=== PATIENT | male | born 1965 | race Caucasian/White ===

== ENCOUNTER 2022-05-28 15:06 | Outpatient (CLI) | payer BC, SELFPAY ==
--- NOTE | 2022-05-28 13:45 | CRLHL7_ITS ---
For Patients: As a result of the Cures Act, medical imaging exams and procedure reports are released immediately into your electronic medical record. You may view this report before your referring provider. If you have questions, please contact your health care provider. INDICATION: Radiculopathy, lumbar region. TECHNIQUE: AP and lateral views of the lower thoracic/lumbar spine. FINDINGS: Mild rotatory lumbar curve convex towards the right. Grade I anterolisthesis L5 relationship to S1. No acute compression fracture. Scattered mild spurring of the upper mid lumbar spine L1-L3. The disc interspaces are fairly well preserved. Metallic BB within the soft tissues posterior to the sacrum. Incidental note is made of multiple small punctate calcifications within the right and left upper quadrant likely related to granulomatous changes within the liver and spleen. IMPRESSION : Mild spurring L1-L3. Grade I anterolisthesis L5 relation to S1. Please see MRI from the same date. Dictated by Akshat Stanton MD @ 05/28/2022 4:37:29 PM (Electronically Signed)
--- NOTE | 2022-05-28 15:30 | CRLHL7_ITS ---
For Patients: As a result of the Century Cures Act, medical imaging exams and procedure reports are released immediately into your electronic medical record. You may view this report before your referring provider. If you have questions, please contact your health care provider. INDICATION: Lumbar radiculopathy. TECHNIQUE : Lumbar spine MRI without contrast. The following sequences were obtained: Sagittal T1, T2 weighted and STIR sequences. Axial T1 and T2 weighted sequences. COMPARISON: Lumbar spine radiographs from 05/28/2022. FINDINGS : Five lumbar type vertebral bodies, with the last fully formed disc space designated as L5-S1. Accentuated lumbar lordosis. Mild dextroconvex lumbar scoliosis. No recent compression fracture or marrow replacing process. A very subtle focus of STIR hyperintensity within the conus at T12-L1, series 4, image 9. no extraspinal soft tissue abnormalities. Discs/Endplates: Advanced disc height loss is disc desiccation and Schmorl`s node deformities and L1-2 and L2-3. Moderate disc height loss is disc desiccation and Schmorl`s nodes at T12-L1. Mild disc height loss and disc desiccation elsewhere. Mild type 1 reactive marrow changes at L2-3 to the left. Posterior elements: Interspinous ligamentous and bony changes and L3-4/L4-5 with associated bone marrow edema. 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 Findings at individual levels as follows: T12-L1: Mild disc bulge. No spinal canal or neural foraminal stenosis. L1-2: Mild disc bulge with a right subarticular protrusion/osteophyte component which contacts the traversing right L2 nerve root. Mild right neural foraminal stenosis. No left neural foraminal stenosis or spinal canal stenosis. L2-3: 3 millimeters retrolisthesis. Mild disc bulge with overlying osteophytic ridging, asymmetric to the left. Mild spinal canal stenosis and mild bilateral neural foraminal stenosis. L3-4: Trace anterolisthesis. Mild disc bulge with overlying osteophytic ridging, asymmetric to the left. Bilateral low-grade facet arthrosis. Mild bilateral neural foraminal stenosis of far-lateral contact of the left L3 nerve root. L4-5: Mild disc bulge with overlying osteophytic ridging. Bilateral low-grade facet arthrosis. Mild bilateral neural foraminal stenosis. No spinal canal stenosis. L5-S1: 7 millimeters anterolisthesis. Superior disc unroofing superimposed mild disc bulge with overlying osteophytic ridging, asymmetric to the left. Left L5 pars defect and right L5 pedicle fracture. Posterior element bone marrow edema. Mild right and moderate left neural foraminal stenosis with contact/mild impingement of the left L5 nerve root. No spinal canal stenosis. Imaged SI joints: Minimal bilateral arthrosis. Imaged sacrum: Within normal limits. IMPRESSION: 1. Subtle focus of STIR hyperintensity within the lower thoracic cord at T12-L1. Nonspecific and could reflect a demyelinating plaque or gliosis from prior ischemic/inflammatory insult. No associated cord atrophy or expansion. 2. Widespread lumbar disc degeneration and facet arthrosis. Accentuated lumbar lordosis and mild dextroconvex lumbar scoliosis. 3. At L5-S1, grade 1 anterolisthesis with left L5 pars defect and right pedicle fracture. Accompanying posterior element bone marrow edema. Moderate left neural foraminal stenosis with contact/mild impingement of the left L5 nerve root. 4. At L3-4, far-lateral contact of the left L3 nerve root by disc osteophyte. 5. At L1-2, a small right subarticular protrusion/osteophyte contacts the traversing right L2 nerve root. 6. 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 Dictated by Sergo Cervantes MD @ 05/29/2022 10:28:10 AM (Electronically Signed)
== END 2022-05-28 15:07 | disposition home or self-care (01) ==
PROVIDERS: Visit Provider Hospitalist
DX: M54.16 Radiculopathy, lumbar region (principal); M51.26 Other intervertebral disc displacement, lumbar region; M48.061 Spinal stenosis, lumbar region without neurogenic claudication
CPT/HCPCS: 72110; 72148

== ENCOUNTER 2022-07-03 15:38 | Outpatient (CLI) | payer BC, SELFPAY ==
--- NOTE | 2022-07-03 16:00 | CRLHL7_ITS ---
For Patients: As a result of the Cures Act, medical imaging exams and procedure reports are released immediately into your electronic medical record. You may view this report before your referring provider. If you have questions, please contact your health care provider. INDICATION: Radiculopathy. TECHNIQUE: Three views of the lumbar spine. FINDINGS: Rotatory lumbar curve convex towards the right. No acute lumbar spine compression fracture. Grade I anterolisthesis of L5 in relationship to S1. Mild narrowing of the upper mid disc spaces. IMPRESSION: Grade I anterolisthesis of L5 in relationship to S1. Lumbar scoliotic curvature convex towards the right. No acute compression fracture identified. Postsurgical change in the pelvis likely from hernia repair. Please correlate clinically. Calcified splenic granulomas. Calcified hepatic granulomas. Dictated by Akshat Stanton MD @ 07/03/2022 10:04:31 PM (Electronically Signed)
== END 2022-07-03 15:39 | disposition home or self-care (01) ==
LOC: RAD 15:39
PROVIDERS: PCP Student in an Organized Health Care Education/Training Program; Visit Provider Student in an Organized Health Care Education/Training Program
DX: M54.16 Radiculopathy, lumbar region (principal)
CPT/HCPCS: 72110

== ENCOUNTER 2022-10-29 12:37 | Outpatient (CLI) | payer BC, SELFPAY ==
--- NOTE | 2022-10-29 13:00 | CRLHL7_ITS ---
For Patients: As a result of the Century Cures Act, medical imaging exams and procedure reports are released immediately into your electronic medical record. You may view this report before your referring provider. If you have questions, please contact your health care provider. Indication: Imbalance, loss of fine motor skills Technique: Multiplanar, multisequence MRI of the brain obtained without contrast. Comparison: No relevant comparison studies available at this institution. Findings: There are multiple scattered foci of FLAIR hyperintensity involving the periventricular and juxta cortical white matter bilaterally. A few of the more prominent periventricular lesions demonstrate T1 hypointensity. A few infratentorial FLAIR hyperintense lesions are noted, such as at the right ventral aissatou and right brachium pontis. Brain parenchymal volume appears age-appropriate. No acute intracranial hemorrhage or abnormal extra-axial fluid collection. No midline shift, hydrocephalus, or herniation. No abnormal restricted diffusion or suspicious susceptibility. There is partial empty sella configuration, presumed anatomic variant. Major expected intracranial flow voids are preserved where visualized. Mild ethmoid sinus mucosal thickening. No paranasal sinus air-fluid level or mastoid effusion. Normal bone marrow signal. Unremarkable orbits. Impression: 1. Multiple FLAIR hyperintense foci scattered throughout the periventricular and subcortical white matter are suspicious for chronic demyelinating plaques in the appropriate clinical setting. Clinical correlation advised. 2. No acute intracranial abnormality. Dictated by Nidhi Marie MD @ 10/30/2022 8:46:34 AM (Electronically Signed)
--- NOTE | 2022-10-29 13:45 | CRLHL7_ITS ---
For Patients: As a result of the Century Cures Act, medical imaging exams and procedure reports are released immediately into your electronic medical record. You may view this report before your referring provider. If you have questions, please contact your health care provider. Indication: Imbalance. Loss of fine motor skills. Technique: T2, T1, and STIR sagittal as well as gradient echo axial sequences were obtained. No IV contrast. Comparison: None available. Findings: The axial images are considerably degraded by patient motion artifact. Mildly exaggerated thoracic kyphosis. Slight chronic loss of anterior vertebral body height at a few mid thoracic levels. No evidence for stress reaction, recent fracture or worrisome bone lesion. Multilevel disc degenerative changes with variable degrees of T2 signal loss, mild annular bulging and mild anterior interbody spurring. No sizable thoracic disc herniations are identified. The central canal is patent. No extrinsic compression of the thoracic spinal cord A focus of abnormal cord signal is seen in the right posterolateral cord at the level of the T12-L1 disc space. There is a suggestion for a few additional smaller foci of poorly defined cord signal abnormality elsewhere in the thoracic region. The appearance suggests demyelinating disease. The thoracic neural foramina are patent. The paravertebral soft tissues are grossly negative. Impression: 1. The axial images are of reduced diagnostic quality due to patient motion. 2. Abnormal signal is seen in the right posterolateral cord at the T12-L1 interspace level, and there is a suggestion for a few additional foci of abnormal signal in the thoracic cord. Findings suggest demyelinating disease. 3. No evidence for recent fracture. No large or frankly lateralizing disc herniations are identified. No extrinsic compression of the thoracic cord. Dictated by Ej De Leon MD @ 10/30/2022 8:39:50 AM (Electronically Signed)
== END 2022-10-29 12:38 | disposition home or self-care (01) ==
LOC: MRI 12:38
PROVIDERS: Visit Provider Orthopaedic Surgery Orthopaedic Surgery of the Spine
DX: R26.89 Other abnormalities of gait and mobility (principal); R29.818 Other symptoms and signs involving the nervous system
CPT/HCPCS: 70551; 72146

== ENCOUNTER 2022-11-15 12:35 | Outpatient (CLI) | payer BC, SELFPAY ==
[2022-11-15 13:35] LABS: Basophils Absolute Auto 0.05 K/uL (0.00-0.30); Basophils Percent Auto 0.6 % (0.0-3.0); Eosinophils Absolute Auto 0.22 K/uL (0.00-0.50); Eosinophils Percent Auto 2.6 % (0.0-7.0); Hematocrit 45.4 % (37.0-53.0); Hemoglobin* 15.1 gm/dL (13.5-17.5); Immature Granulocytes Abs Auto 0.02 K/uL (0.00-0.30); Immature Granulocytes Pct Auto 0.2 %; Lymphocytes Absolute Auto 2.42 K/uL (0.90-2.90); Lymphocytes Percent Auto 28.9 % (20-44); Mean Corpuscular HGB Conc 33 gm/dL (32-36); Mean Corpuscular Hemoglobin 32 pg (26-34); Mean Corpuscular Volume 95 fL (80-100); Monocytes Percent Auto 8.8 % (0.0-11.0); Neutrophils Absolute Auto 4.93 K/uL (1.7-7.0); Neutrophils Percent Auto 58.9 % (42.0-72.0); Platelet Count* 335 K/uL (140-440); RDW Coefficient of Variation % 12.7 % (11.5-15.5); Red Blood Count 4.77 m/uL (4.30-5.90); White Blood Count* 8.38 K/uL (4.50-11.00)
[2022-11-15 13:44] LABS: Slide Review Reflex No
--- NOTE | 2022-11-15 13:45 | CRLHL7_ITS ---
For Patients: As a result of the Century Cures Act, medical imaging exams and procedure reports are released immediately into your electronic medical record. You may view this report before your referring provider. If you have questions, please contact your health care provider. INDICATION: Leg spasm. Leg weakness TECHNIQUE: Noncontrast Sagittal T1, FLAIR, axial FSE T2, FLAIR, DWI, post contrast axial and coronal T1W images submitted. Compared to prior study from October 29, 2022 15 cc of dotarem gadolinium was administered intravenously. FINDINGS: The ventricles, sulci and gyri are of normal size, shape and contour for age. Midline structures are centrally located. No convincing evidence of suspicious intra- or extra-axial fluid collections. Mild scattered foci of non-enhancing increased T2 signal within the periventricular and subcortical white matter of both cerebral hemispheres. Since the prior study there has been interval development of a 5 millimeter enhancing lesion in the right posterior periventricular white matter. Better visualized nonenhancing increased T2 signal within the right ventral aissatou and right middle cerebellar peduncle. No regions of restricted diffusion. IMPRESSION: 1. Worsening mild supratentorial and stable infratentorial white matter change compatible with chronic demyelinating plaques. 2. Interval development of a enhancing lesions right posterior periventricular white matter compatible with an active demyelinating plaque. 3. Stable mild T1 hypointense lesion load. Dictated by Aidan Lobato MD @ 11/17/2022 2:56:50 PM (Electronically Signed)
[2022-11-15 13:49] LABS: Albumin* 4.2 g/dL (3.3-5.0)
[2022-11-15 13:52] LABS: Bilirubin Direct* 0.1 mg/dL (0.0-0.5); Bilirubin Total* 0.7 mg/dL (0.1-1.5)
[2022-11-15 13:53] LABS: Alanine Aminotransferase* 25 U/L (4-50); Alkaline Phosphatase* 96 U/L (40-150); Aspartate Amino Transferase* 25 U/L (12-35); Total Protein* 6.9 g/dL (6.0-8.3)
[2022-11-15 14:10] LABS: Vitamin D 25 Hydroxy* 16 ng/mL (30-80)
--- NOTE | 2022-11-15 14:30 | CRLHL7_ITS ---
For Patients: As a result of the Century Cures Act, medical imaging exams and procedure reports are released immediately into your electronic medical record. You may view this report before your referring provider. If you have questions, please contact your health care provider. INDICATION: Muscle spasm. Leg weakness TECHNIQUE: Noncontrast sagittal T1, T2, STIR, proton density and axial GRE sequences are provided. Supplemental post-contrast sagittal axial T1 weighted sequences are provided. Compared to prior study from September 18, 2022. 15 cc of dotarem was administered intravenously. FINDINGS: The overall stature, alignment and intrinsic marrow signal of the cervical spine is within normal limits. Again seen are multiple foci of signal abnormality scattered throughout the cervical cord. Subtle cord atrophy at the C5 and C7-T1 levels. No suspicious regions of abnormal contrast enhancement. C2-3: Unremarkable. C3-4: Stable mild central canal narrowing. No foraminal narrowing. C4-5: Unremarkable. C5-6: Stable moderate right and mild left foraminal narrowing due to asymmetric uncovertebral joint and facet arthropathy. No central canal narrowing. C6-7: Stable moderate right foraminal narrowing due to asymmetric uncovertebral joint facet arthropathy. No central canal narrowing. Mild left foraminal narrowing. C7-T1: Unremarkable. IMPRESSION: 1. Essentially stable multifocal signal abnormality scattered throughout the cervical cord compatible with multiple chronic demyelinating plaques. 2. Stable subtle cord atrophy at C5 and C7-T1 levels. 3. No suspicious enhancing lesions to suggest an active demyelinating process. 4. Stable moderate right and mild left foraminal narrowing at C5-6 and C6-7 . Dictated by Aidan Lobato MD @ 11/17/2022 3:02:46 PM (Electronically Signed)
[2022-11-15 14:42] LABS: Vitamin B12* 230 pg/mL (243-894)
[2022-11-15 14:45] LABS: C Reactive Protein* < 0.5 mg/dL (0.5-1.0)
[2022-11-15 14:54] LABS: Free T4 Free Thyroxine* 1.37 ng/dL (0.70-1.85)
[2022-11-15 15:28] LABS: Erythrocyte SedimentationRate* 5 mm/hr (2-15)
--- NOTE | 2022-11-15 15:30 | CRLHL7_ITS ---
For Patients: As a result of the Century Cures Act, medical imaging exams and procedure reports are released immediately into your electronic medical record. You may view this report before your referring provider. If you have questions, please contact your health care provider. INDICATION: Muscle spasm. Leg weakness TECHNIQUE: Noncontrast sagittal T1, T2, STIR and axial GRE sequences are provided. Supplemental postcontrast sagittal T1 weighted sequences are provided. Compared to prior study from October 29, 2022. FINDINGS: The overall stature, alignment and intrinsic marrow signal of the thoracic spine is within normal limits. Stable focus of nonenhancing increased T2 signal within the thoracic cord at the T12-L1 level. Equivocal T2 lesion seen at the T10-11 level. No suspicious disc bulges or protrusions. No suspicious central canal or foraminal narrowing. No suspicious regions of abnormal contrast enhancement. IMPRESSION: 1. Essentially stable signal abnormality within the distal thoracic cord compatible with chronic demyelinating plaques. 2. No suspicious enhancing lesions to suggest an active demyelinating process. Dictated by Aidan Lobato MD @ 11/17/2022 2:58:59 PM (Electronically Signed)
[2022-11-16 21:30] LABS: Anti-Nuclear Ab(ANA)IgG ELISA None Detected (None Detected)
[2022-11-18 16:14] LABS: Vitamin B1, Whole Blood 144 nmol/L (70-180)
[2022-11-18 20:10] LABS: ANCA IFA Pattern None Detected (None Detected); ANCA IFA Titer <1:20 (<1:20); Myeloperoxidase (MPO) Ab, IgG 0 AU/mL (0-19); Serine Proteinase 3 Ab IgG 6 AU/mL (0-19)
== END 2022-11-15 12:36 | disposition home or self-care (01) ==
PROVIDERS: Visit Provider Psychiatry & Neurology Neurology
DX: M62.838 Other muscle spasm (principal); R29.898 Other symptoms and signs involving the musculoskeletal system
CPT/HCPCS: 36415; 70553; 72156; 72157; 80076; 82306; 82607; 83516; 84182; 84425; 84439; 84443; 85025; 85651; 86039; 86051; 86140; 86255; 86617; 86711; A9575

== ENCOUNTER 2022-12-04 13:00 | Outpatient (RCR) | payer BC, SELFPAY ==
--- NOTE | 2022-11-29 14:56 | ONC.NURNOTE ---
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
[2022-12-02 13:04] VITALS: BP 127/82; PULSE 81; RESP 16; TEMP 36.6; O2SAT 97
[2022-12-02] MEDS: METHYLPREDNISOLONE SOD SUCC 1,000 MG in 0.9 % SODIUM CHLORIDE 100 ml 100 ML 116 MG IVPB (13:34)
[2022-12-03 13:08] VITALS: BP 131/80; PULSE 91; RESP 16; TEMP 36.7; O2SAT 96
[2022-12-03] MEDS: METHYLPREDNISOLONE SOD SUCC 1,000 MG in 0.9 % SODIUM CHLORIDE 100 ml 100 ML 116 MG IVPB (13:30)
[2022-12-04 13:00] VITALS: BP 124/80; PULSE 74; RESP 16; TEMP 36.6; O2SAT 95
[2022-12-04] MEDS: METHYLPREDNISOLONE SOD SUCC 1,000 MG in 0.9 % SODIUM CHLORIDE 100 ml 100 ML 116 MG IVPB (13:18)
== END 2023-05-31 23:59 | disposition home or self-care (01) ==
LOC: CCIC 13:00
PROVIDERS: PCP Clinical Nurse Specialist; Referring Provider Clinical Nurse Specialist; Visit Provider Clinical Nurse Specialist
DX: M48.26 Kissing spine, lumbar region (principal)
CPT/HCPCS: 96365; J2930

== ENCOUNTER 2023-07-03 08:30 | Outpatient (RCR) | payer BC, SELFPAY | END 2023-10-01 10:55 | disposition home or self-care (01) | PROVIDERS: PCP Clinical Nurse Specialist; Visit Provider Psychiatry & Neurology Neurology | DX: G64 Other disorders of peripheral nervous system (principal); M62.838 Other muscle spasm; Z51.89 Encounter for other specified aftercare | CPT/HCPCS: 97110; 97112; 97140; 97161 ==